=== PATIENT | female | born 1985 | race Caucasian/White ===

== ENCOUNTER 2020-04-30 09:18 | Day surgery (SDC) | payer OTHER ==
[2020-04-30] MEDS ORDERED: Ringers Lactate 1,000 ML IV ONE (09:41)
[2020-04-30] MEDS ORDERED: CEFAZOLIN/SWI 1gm 1 GM/10 ML SYR ONE (09:41)
[2020-04-30] MEDS ORDERED: CEFAZOLIN/SWI 2gm 2 GM/20 ML SYR ONE (09:42)
[2020-04-30 09:45] LABS: Specific Gravity 1.015 (1.005-1.030)
[2020-04-30] MEDS ORDERED: dexAMETHasone 10 MG/ML VIAL ONE (10:19)
[2020-04-30] MEDS ORDERED: LIDOCAINE 2% MPF 5 ML VIAL ONE (10:19)
[2020-04-30] MEDS ORDERED: FENTANYL CITR 100 MCG/2 ML ONE (10:19)
[2020-04-30] MEDS ORDERED: ROCURONIUM 50 MG/5 ML VIAL IV ONE (10:19)
[2020-04-30] MEDS ORDERED: propofoL 200 MG/20 ML VIAL IV ONE (10:19)
[2020-04-30] MEDS ORDERED: ONDANSETRON 4 MG/2 ML VIAL ONE ×2 (10:20→12:06)
[2020-04-30] MEDS ORDERED: MIDAZOLAM HCL 2 MG/2 ML INJ ONE (10:20)
[2020-04-30] MEDS ORDERED: KETOROLAC 30 MG/ML INJ ONE (11:39)
[2020-04-30] MEDS ORDERED: GLYCOPYRROLATE 0.2 MG/ML SYR ONE (11:42)
[2020-04-30] MEDS ORDERED: NEOSTIGMINE 1 MG/ML -5 ML ONE (11:42)
[2020-04-30] MEDS: MEPERIDINE HCL 25 MG/ML SYR ONE ×2 (11:58→12:05)
--- NOTE | 2020-04-30 12:31 | OP ---
Date of Procedure: 04/30/2020 Surgeon: Megan Rondon MD Shop Hand: None. Preoperative Diagnosis: Menorrhagia. Postoperative Diagnosis: Menorrhagia. Procedure Performed: Hysteroscopy, endometrial ablation with NovaSure. Anesthesia: General with LMA. Complications: None. Drains: None. Specimens: None. Condition: Stable. Findings: Anteverted uterine cavity, 5.5 cm in length, 4.5 cm in width. The cavity distortion very slight after I got passed the internal os. Pre-triangular cavity without any irregularities, so Nova Sure ablation was performed without any problems. The length of the cavity 5.5 with 4.5 power of 136 paula, time 41 seconds. There was an excellent ablation effect after the ablation was completed and hysteroscopy was performed. Description Of Procedure: After informed consent was verified, patient was taken back to OR after co nsenting her, placed in the supine. Her endometrial curettage and sampling were negative for atypia or malignancy. 2 g of Ancef were given, placed in the supine fashion. General anesthesia given, kendra cinthya in a dorsal lithotomy position. Vulva and vagina prepped and draped in a sterile fashion. Specu lum placed to expose the cervix. Anterior lip grasped with 2 Allis clamps. Diagnostic SlimLine hyst eroscope used to enter the uterine cavity after taking direct measurements. The scope was removed. Cervix was dilated to 16-Mongolian. Then, the endometrial ablation device was opened up, primed, insert ed into the uterine cavity, and deployed. 4.5 cm of cavity width was noted and entered into the gene rator. Power setting was 136 paula, started the cavity integrity test by occluding the external os w ith the occluder and then after this passed smoothly, ablation cycle was started and there was uninte rrupted ablation cycle for 41 seconds. Patient tolerated it and then the device was undeployed in e usual fashion, removed, and hysteroscopy was performed. Cavity was rinsed out, then visualized, ex cellent ablation effect in the global endometrial cavity. The scope was removed. Instruments were r emoved. Toradol was given. The patient was recovered from anesthesia and taken to PACU in stable co ndition. Instrument, needle, and sponge counts correct. She will follow up with me in 1 month. Has all the instructions. SK/MODL Voice ID: [id number] Report ID: [id number]
[2020-04-30 12:43] VITALS: BP 113/89; TEMP 97.4; O2SAT 100
[2020-04-30] MEDS ORDERED: HYDROCODONE/APAP 5/325 MG TAB ONE (13:10)
== END 2020-04-30 13:20 | disposition home or self-care (01) ==
LOC: OR 09:18
PROVIDERS: ATTEND Obstetrics & Gynecology
PROC: 0U5B8ZZ Destruction of Endometrium, Via Natural or Artificial Opening Endoscopic (ICD-10-PCS; principal; 2020-04-30 10:30)
DX: N92.1 Excessive and frequent menstruation with irregular cycle (principal); N94.12 Deep dyspareunia; F41.8 Other specified anxiety disorders; Z20.828 Contact with and (suspected) exposure to other viral communicable diseases
CPT/HCPCS: 81025; 58563; U0002; J2704; J2250; J3010; J1100; J2175; J2710; J0690 ×2; J7120; J2405 ×2